=== PATIENT | male | born 2000 | race Caucasian/White ===

== ENCOUNTER 2020-06-04 14:10 | Emergency (ER) | payer OTHER ==
[~2020-06-04] VITALS: Ht 182.9 cm; Wt 122.5 kg
[2020-06-04] MEDS ORDERED: BENADRYL25 MG (14:23)
[2020-06-04] MEDS ORDERED: IBUPROFEN 800800 M1 PO (15:14)
[2020-06-04 15:25] VITALS: BP 120/70
== END 2020-06-04 15:26 | disposition home or self-care (01) ==
LOC: M.ERS 14:10
DX: S93.505A Unspecified sprain of left lesser toe(s), initial encounter (principal); W18.39XA Other fall on same level, initial encounter; Y93.02 Activity, running; Y92.218 Other school as the place of occurrence of the external cause; Y99.8 Other external cause status